=== PATIENT | female | born 1965 | race Two or more races ===

== ENCOUNTER 2022-06-16 08:28 | Inpatient (IN) | payer BC ==
[~2022-06-16] VITALS: Ht 152.4 cm; Wt 79.4 kg
--- NOTE | 2022-06-16 09:17 | NUR ---
BIBSelf, c/o of pain in face, itching generalized, skin noted with allergic reaction types of discoloration, stated was slurring speach this am, no longer present, performed NIH test passed all at this time, stated tingle sensation on tongue and slight pain on upper left shoulder radiating down to upper arm area.
--- NOTE | 2022-06-16 09:19 | NUR ---
CT SCAN PERFORMED
--- NOTE | 2022-06-16 09:28 | NUR ---
BLOOD DRAW COMPLETED SENT TO LAB
[2022-06-16 09:46] LABS: BASOPHILS % (AUTO) 0.4 % (0.0-2.0); EOSINOPHILS % (AUTO) 1.3 % (0.0-6.0); HEMATOCRIT 42 % (33-45); LYMPHOCYTES # (AUTO) 1.3 K/uL (0.8-4.8); LYMPHOCYTES % (AUTO) 14.6 % (20.0-44.0); MEAN CORPUSCULAR HGB CONC 33 g/dl (31.0-36.0); MEAN CORPUSCULAR VOLUME 85 fL (82-100); MONOCYTES # (AUTO) 0.4 K/uL (0.1-1.30); MONOCYTES % (AUTO) 5.2 % (2.0-12.0); NEUTROPHILS # (AUTO) 6.7 K/uL (1.8-8.9); NEUTROPHILS % (AUTO) 78.5 % (43.0-81.0); PLATELET COUNT (AUTO) 226 K/uL (150-450); RED BLOOD CELL COUNT(AUTO) 4.93 MIL/uL (4.0-5.2); WHITE BLOOD COUNT (AUTO) 8.6 K/uL (4.3-11.0)
[2022-06-16 09:55] LABS: CALCIUM, SERUM 8.5 mg/dL (8.5-10.1); CARBON DIOXIDE 24 mmol/L (21-32); CHLORIDE 104 mmol/L (98-107); CREATININE 0.7 mg/dL (0.6-1.3); GLUCOSE 196 mg/dL (74-106); POTASSIUM 3.6 mmol/L (3.5-5.1); SODIUM SERUM 138 mmol/L (136-145); UREA NITROGEN, BLOOD 13 mg/dL (7-18)
--- NOTE | 2022-06-16 10:40 | NUR ---
RAPID COVID SWAB DONE AND SENT TO LAB
[2022-06-16] MEDS ORDERED: LISI20TA30 PO (11:06)
[2022-06-16] MEDS ORDERED: ATOR10TA PO (11:06)
[2022-06-16] MEDS ORDERED: SITA100T PO (11:06)
[2022-06-16] MEDS ORDERED: DAPA1TAB3 PO (11:06)
--- NOTE | 2022-06-16 11:09 | NUR ---
[facility] CALLED TREATING MACHINE OPERATOR PAGED.
--- NOTE | 2022-06-16 11:35 | NUR ---
IV site intact, kept IV to transfer pt admin, site Left Hand no stop time to record at this time.
[2022-06-16 11:50] LABS: BILIRUBIN,URINE NEGATIVE (NEGATIVE); COLOR,URINE YELLOW (YELLOW); LEUKOCYTE ESTERASE ,URINE NEGATIVE (NEGATIVE); NITRITE, URINE POSITIVE (NEGATIVE); PH,URINE 5.5 (5.0-8.0); PROTEIN,URINE NEGATIVE (NEGATIVE); UGLUCOSE 3+ mg/dL (NEGATIVE); UROBILINOGEN,URINE 0.2 EU/dL (0.2)
[2022-06-16 11:51] LABS: BACTERIA,URINE Many /HPF (None Seen); SQUAMOUS EPITHELIAL CELL,UR Few /HPF (None Seen)
[2022-06-16] MEDS: BLOOD SUGAR DIAGNOSTIC 1 EACH STRIP IN SCH ×3 (12:00→21:36)
[2022-06-16] MEDS ORDERED: HOME MED MISCELLANEOUS XX SCH (12:00)
[2022-06-16] MEDS ORDERED: ALPRAZOLAM 0.5 MG TABLET PO PRN (12:00)
[2022-06-16] MEDS ORDERED: TEMAZEPAM 15 MG CAPSULE PO PRN (12:00)
[2022-06-16] MEDS ORDERED: ENOXAPARIN SODIUM 40 MG/0.4 ML DISP.SYRIN SQ SCH (12:00)
[2022-06-16] MEDS ORDERED: hydrALAZINE HCL IV 20 MG VIAL IV PRN (12:00)
[2022-06-16] MEDS ORDERED: ENOXAPARIN SODIUM 40 MG/0.4 ML DISP.SYRIN SQ ONE (12:56)
--- NOTE | 2022-06-16 13:57 | NUR ---
GOT BED 321-1
--- NOTE | 2022-06-16 13:58 | NUR ---
ultra sound performed
--- NOTE | 2022-06-16 13:58 | NUR ---
MRI - pt transferred to [facility]
--- NOTE | 2022-06-16 14:50 | NUR ---
TELE ADMISSION NOTES: PT TRANSFERRED FROM ER TO UNIT VIA GURNEY. BUT WAS ABLE TO AMBULATE TO BED WITH STEADY GAIT. PT IS ON RA WITH NO S/S OF SOB, BREATHING UNLABORED, VS WNL. DENIES PAIN AT THIS TIME. TELE MONITOR READS SR 93, IV ACCESS L HAND #20, PATENT, SL. SKIN IS MOSTLY INTACT, NO OPEN WOUNDS BUT WITH SOME REDNESS NOTED UNDER BREAST AND BEHIND NECK. ORIENTED TO STAFF AND UNIT, SAFETY MEASURES IN PLACE. CALL LIGHT, TABLE WITHIN EASY REACH, ENCOURAGE TO USE CALL LIGHT FOR HELP, WILL CONT WITH PLAN OF CARE DURING SHIFT.
--- NOTE | 2022-06-16 15:03 | NUR ---
pt transferred to room 321-1 third floor safe transfer
[2022-06-16 16:00] VITALS: BP 150/76
[2022-06-16] MEDS: METFORMIN 500 MG TABLET PO SCH ×2 (17:00→17:10)
--- NOTE | 2022-06-16 17:23 | NUR ---
metformin non administered < [address] head
[2022-06-16] MEDS: INSULIN REGULAR, HUMAN 100 UNIT/ML 3 ML VIAL SQ PRN ×2 (18:29→22:06)
[2022-06-16] MEDS ORDERED: DEXTROSE 50%-WATER 50 ML DISP.SYRIN IV PRN (18:30)
--- NOTE | 2022-06-16 18:30 | NUR ---
MS RN NOTES: TELEVISION TUBE INSPECTOR SPOKE TO HUNG Ortiz NP. PER SALESPERSON FLYING SQUAD, PATIENT IS CLEARED FOR PT AND OT EVNORM. PT IS OK FOR DC PLANNING IN AM 06/17/2022. PT OK TO AMBULATE TO BATHROOM WITH 2 PERSON ASSIST WHILE KEEPING NECK STABILIZE IN BRACES. Addendum: 06/16/22 at 1923 by VALERIY HOU RN PLS DISREGARD THIS NOTES FOR THIS PT, ERRONEOUS ENTRY
--- NOTE | 2022-06-16 19:00 | NUR ---
ROSTER CLERK CLOSING NOTES: PT IS AWAKE, A/O X4, ABLE TO VERBALIZED NEEDS. PT IS ON RA WITH NO S/S OF SOB, BREATHING UNLABORED, DENIES PAIN AT THIS TIME. TELE MONITOR READS SR, HR= 102, IV ACCESS L HAND #20, PATENT, INTACT. MEDS GIVEN, KEPT PT CLEAN, DRY AND COMFORTABLE, NEEDS MET. SAFETY MEASURES IN PLACE, CALL LIGHT, TABLE WITHIN EASY REACH. WILL ENDORSE TO PM SHIFT.
--- NOTE | 2022-06-16 19:20 | NUR ---
PSYCH SALES SPECIALIST OPENING NOTE PATIENT IS LYING IN BED. SHE IS TALKING OVER THE PHONE WITH HER FAMILY MEMBERS. SHE IS ALERT AND ORIENTED, AO X 4. PATIENT IS ON RA, TOLERATED WELL. NO S/S OF SOB OR DISTRESS. IV ACCESS IS AT HER LEFT HAND, #20G; SL. PATIENT IS ON EXTERNAL NIGHT MONITOR, ON THE MONITOR, HER HEART RHYTHM IS AT SR WITH HEART RATE OF 90S OR ST WITH HEART RATE AT 100S. PATIENT IS ASYMPTOMATIC. PATIENT HAS NO S/S OF HAVING STROKE. SAFETY MEASURES ARE IN PLACE: BED IN LOWEST AND LOCKED POSITION; SIDE RAILS UP X 2; CALL LIGHT AND TABLE ARE WITHIN REACH. WILL CONTINUE MONITOR THE PATIENT AND PROVIDE THE CARE SHE NEEDS.
[2022-06-16 20:00] VITALS: BP 103/61
[2022-06-16] MEDS ORDERED: ATORVASTATIN 10 MG TABLET PO SCH (22:00)
--- NOTE | 2022-06-16 22:00 | NUR ---
BACON DE RINDER NOTE PATIENT IS INSERTED ONE MID-LINE ON HER R UA, #18G; SL. PATIENT AND INTACT. NO S/S OF BLEEDING OR EDEMA, TOLERATED WELL. THE IV ACCESS ON HER LEFT HAND HAS BEEN REMOVED PER PATIETN'S REQUEST; PRESSURE APPLIED, AND DRESSING PROVIDED.
[2022-06-17] VITALS: BP 134/69
[2022-06-17 04:00] VITALS: BP 130/69
[2022-06-17 05:48] LABS: BASOPHILS % (AUTO) 0.5 % (0.0-2.0); EOSINOPHILS % (AUTO) 3.4 % (0.0-6.0); HEMATOCRIT 40 % (33-45); HEMOGLOBIN 13.6 g/dL (11.5-14.8); LYMPHOCYTES # (AUTO) 1.6 K/uL (0.8-4.8); LYMPHOCYTES % (AUTO) 26.5 % (20.0-44.0); MEAN CORPUSCULAR HGB CONC 34 g/dl (31.0-36.0); MEAN CORPUSCULAR VOLUME 86 fL (82-100); MONOCYTES # (AUTO) 0.4 K/uL (0.1-1.30); MONOCYTES % (AUTO) 6.1 % (2.0-12.0); NEUTROPHILS # (AUTO) 3.9 K/uL (1.8-8.9); NEUTROPHILS % (AUTO) 63.5 % (43.0-81.0); PLATELET COUNT (AUTO) 212 K/uL (150-450); WHITE BLOOD COUNT (AUTO) 6.1 K/uL (4.3-11.0)
[2022-06-17 06:11] LABS: CALCIUM, SERUM 8.7 mg/dL (8.5-10.1); CREATININE 0.5 mg/dL (0.6-1.3); POTASSIUM 3.5 mmol/L (3.5-5.1)
[2022-06-17] MEDS: INSULIN REGULAR, HUMAN 100 UNIT/ML 3 ML VIAL SQ PRN (06:36)
[2022-06-17] MEDS: BLOOD SUGAR DIAGNOSTIC 1 EACH STRIP IN SCH (06:53)
--- NOTE | 2022-06-17 06:56 | NUR ---
PREFLIGHT INSPECTOR CLOSING NOTE PATIENT IS SLEEPING IN BED. EASILY BEING AROUSED. SHE IS AO X 4. PATIENT IS ON RA, TOLERATED WELL. NO S/S OF SOB OR DISTRESS. IV ACCESS IS HER R UA, ML, #18G, SL. HER HEART RHYTHM IS AT SR WITH HEART RATE OF 90S OR ST WITH HEART RATE AT 100S. PATIENT IS ASYMPTOMATIC. PATIENT HAS NO S/S OF HAVING STROKE. SAFETY MEASURES ARE IN PLACE: BED IN LOWEST AND LOCKED POSITION; SIDE RAILS UP X 2; CALL LIGHT AND TABLE ARE WITHIN REACH. WILL ENDORSE NEXT SHIFT NURSE FOR CONTINUING PATIENT CARE.
--- NOTE | 2022-06-17 07:00 | NUR ---
EMBRYOLOGY TEACHER OPENING NOTES: RECEIVED PT IN BED AWAKE SITTING IN A CHAIR. ALERT AND ORIENTED X 4 AND ABLE TO MAKE NEEDS KNOWN, NO SOB OR CARDIAC DISTRESS NOTED, DENIES PAIN OR ANY DISCOMFORT AT THIS TIME. ON FINE CHEMICALS OPERATOR WITH CURRENT READING OF SINUS RHYTHM @88BPM. NOTED WITH WALLY GAUGE 18 PATENT,INTACT AND SALINE LOCKED. SAFETY MEASURES MAINTAINED: BED LOCKED AND IN LOWEST POSITION, SIDE RAILS UP X 2 CALL LIGHT IN EASY REACH FOR HELP. WILL MONITOR ACCORDINGLY.
[2022-06-17] MEDS ORDERED: PANTOPRAZOLE 40 MG TABLET.DR PO SCH (07:30)
[2022-06-17 08:00] VITALS: BP 147/90
[2022-06-17] MEDS: METFORMIN 500 MG TABLET PO SCH (08:09)
[2022-06-17 08:18] VITALS: BP 147/90
[2022-06-17] MEDS ORDERED: ATOR20TA PO (08:57)
[2022-06-17] MEDS ORDERED: ALPR0.5T PO (08:57)
[2022-06-17] MEDS ORDERED: ASPI-1169 PO (08:57)
[2022-06-17] MEDS ORDERED: LINAGLIPTIN 5 MG TABLET PO SCH (09:00)
[2022-06-17] MEDS ORDERED: SITAGLIPTIN PHOSPHATE 50 MG TABLET PO SCH (09:00)
[2022-06-17] MEDS ORDERED: ASPIRIN EC 325 MG TABLET.DR PO SCH (09:00)
[2022-06-17] MEDS ORDERED: LISINOPRIL (20MG) 20 MG TABLET PO SCH (09:00)
[2022-06-17] MEDS ORDERED: DAPAGLIFLOZIN PROPANEDIOL 5 MG TABLET PO SCH (09:00)
--- NOTE | 2022-06-17 10:00 | NUR ---
RIM FIRE PRIMING TOOL SETTER NOTES: PATIENT DC HOME ACCOMPANIED BY SONETHAN. PT ALERT AND ORIENTED X 4 AND ABLE TO MAKE NEEDS KNOWN. PT DENIES ANY PAIN AT THIS TIME. DISCHARGE INSTRUCTIONS GIVE TO PT AND VERBALIZED UNDERSTANDING. ALL BELONGINGS TAKEN WITH THE RESIDENT AND SIGNES. MOTOR VEHICLE ESCORT DRIVER GIVEN TO US WRIGHT (GIVEN BY OLY FERREIRA). SKIN ISSUES NOTED AND PHOTOS TAKEN FILED TO PT'S CHART. PT LEFT THE UNIT STABLE
== END 2022-06-17 09:50 | disposition still patient (30) | DRG 69 ==
LOC: ER 08:37 → TELE 14:00
PROVIDERS: ADMIT Nurse Practitioner Acute Care; ATTEND Nurse Practitioner Acute Care
PROC: 05H933Z Insertion of Infusion Device into Right Brachial Vein, Percutaneous Approach (ICD-10-PCS; principal; 2022-06-16)
DX: G45.9 Transient cerebral ischemic attack, unspecified (principal); E11.65 Type 2 diabetes mellitus with hyperglycemia; Z79.84 Long term (current) use of oral hypoglycemic drugs; Z20.822 Contact with and (suspected) exposure to COVID-19; I10 Essential (primary) hypertension; E78.5 Hyperlipidemia, unspecified; G51.0 Bell's palsy; E78.00 Pure hypercholesterolemia, unspecified; Z79.899 Other long term (current) drug therapy; Z90.49 Acquired absence of other specified parts of digestive tract; E66.9 Obesity, unspecified; Z68.34 Body mass index [BMI] 34.0-34.9, adult; Z90.711 Acquired absence of uterus with remaining cervical stump
CPT/HCPCS: 36415; 70450-TC; 70551-TC; 71045-TC; 80048-TC; 80061-TC; 81001; 82962-TC; 84443-TC; 84484-TC; 85025-TC; 85652-TC; 85730-TC; 87081-TC; 87086-TC; 92526; 92611-TC; 93307-TC; 93880-TC; 93970-TC; C9803; G0378; J1650; J1815; J7030